=== PATIENT | female | born 1960 | race Two or more races ===

== ENCOUNTER 2017-11-02 17:30 | Emergency (ER) | payer MEDICARE, MEDICAID ==
[~2017-11-02] VITALS: Ht 165.1 cm; Wt 77.1 kg
[~2017-11-02 17:30] MED LIST: ACET-2154 PO; TRAM50TA2 PO
[2017-11-02] MEDS ORDERED: methylPREDNISolone SOD SUCC 125 MG/2 ML VIAL IM ONE (19:00)
[2017-11-02] MEDS ORDERED: diphenhydrAMINE 50 MG/1 ML VIAL IM ONE (19:00)
[2017-11-02] MEDS ORDERED: FAMOTIDINE 20 MG TABLET PO ONE (19:00)
--- NOTE | 2017-11-02 19:07 | NUR ---
[facility] REPORT TO VIVEK MI
--- NOTE | 2017-11-02 19:28 | NUR ---
Patient discharged to home in stable conditon. Written and verbal after care instructions given. Patient verbalizes understanding of instructions.
[2017-11-02] MEDS ORDERED: methylPREDNISolone SOD SUCC 125 MG/2 ML VIAL ONE (19:31)
[2017-11-02] MEDS ORDERED: FAMOTIDINE 20 MG TABLET ONE (19:31)
[2017-11-02] MEDS ORDERED: diphenhydrAMINE 50 MG/1 ML VIAL ONE (19:31)
== END 2017-11-02 19:54 | disposition home or self-care (01) ==
LOC: ER 17:30
DX: L50.9 Urticaria, unspecified (principal); G89.29 Other chronic pain; M54.5 Low back pain; E78.5 Hyperlipidemia, unspecified; Z88.0 Allergy status to penicillin
CPT/HCPCS: A4663; J1200; J2930

== ENCOUNTER 2019-04-23 19:32 | Emergency (ER) | payer MEDICARE, MEDICAID ==
[~2019-04-23] VITALS: Ht 165.1 cm; Wt 71.7 kg
[2019-04-23] MEDS ORDERED: diphenhydrAMINE 50 MG/1 ML VIAL ONE (20:28)
--- NOTE | 2019-04-23 20:28 | NUR ---
Patient discharged to home in stable conditon. Written and verbal after care instructions given. Patient verbalizes understanding of instructions. Ambulated from ER with stable gait. All belongings with patient.
[2019-04-23 20:29] VITALS: BP 125/71
[2019-04-23] MEDS ORDERED: diphenhydrAMINE 50 MG/1 ML VIAL IM ONE (20:30)
== END 2019-04-23 20:30 | disposition home or self-care (01) ==
LOC: ER 19:32
DX: R21 Rash and other nonspecific skin eruption (principal); L29.9 Pruritus, unspecified; G47.00 Insomnia, unspecified; Z88.0 Allergy status to penicillin; Z79.899 Other long term (current) drug therapy
CPT/HCPCS: 96372; 99283; J1200; A4663